=== PATIENT | female | born 1975 | race Two or more races ===

== ENCOUNTER 2019-01-10 16:44 | Emergency (ER) | payer MEDICAID, OTHER ==
[~2019-01-10] VITALS: Ht 157.5 cm; Wt 74.8 kg
--- NOTE | 2019-01-10 16:54 | NUR ---
seen by dr frost. orders received
--- NOTE | 2019-01-10 17:06 | NUR ---
taken to radiology dept for xrays of the sternum, cervical spine and left leg and foot
--- NOTE | 2019-01-10 17:49 | NUR ---
given exit care and prescription for pain. was also iven excuse off work till the 01/16
--- NOTE | 2019-01-10 18:25 | NUR ---
exit care and prescription abd exusse from work given. patient hesistant to go home
--- NOTE | 2019-01-10 18:26 | NUR ---
atill waiting for ride home
[2019-01-10 19:07] VITALS: BP 119/80
== END 2019-01-10 19:08 | disposition home or self-care (01) ==
LOC: ER 16:48
DX: S20.212A Contusion of left front wall of thorax, initial encounter (principal); M79.605 Pain in left leg; V53.5XXA Driver of pick-up truck or van injured in collision with car, pick-up truck or van in traffic accident, initial encounter; Y93.89 Activity, other specified; Y92.89 Other specified places as the place of occurrence of the external cause; Y99.8 Other external cause status
CPT/HCPCS: 71120; 73590; A4663